=== PATIENT | female | born 1985 | race Two or more races ===

== ENCOUNTER 2017-02-26 23:42 | Emergency (ER) | payer MEDICAID ==
[~2017-02-26] VITALS: Ht 170.2 cm; Wt 90.9 kg
[~2017-02-26 23:42] MED LIST: ALPR-624 PO; ARIP2TAB37 PO; CLON-527 PO; LAMO25TA94 PO; LEVO25TA7 PO; OMEP40CA37 PO; ONDA4TAB6 PO; TIZA4TAB11 PO; TRAZ-146 PO; ZOLP10TA5 PO
[2017-02-27] MEDS ORDERED: ondansetron 4mg rapidly disintigrating tab PO ONE (00:10)
[2017-02-27] MEDS ORDERED: HYDROcodone/acetaminophen 5mg/325mg tablet PO ONE (00:10)
[2017-02-27] MEDS ORDERED: dexamethasone 4mg tablet PO ONE (00:10)
[2017-02-27] MEDS ORDERED: diazepam 5mg tablet PO ONE (00:10)
[2017-02-27] MEDS ORDERED: ONDA4TAB9 SL (00:11)
[2017-02-27] MEDS ORDERED: VAL5T PO (00:11)
[2017-02-27] MEDS ORDERED: METH500T PO (00:11)
[2017-02-27] MEDS ORDERED: HYDR-3965 PO (00:11)
[2017-02-27 00:42] VITALS: BP 136/92
== END 2017-02-27 00:44 | disposition home or self-care (01) ==
LOC: ER 23:43
DX: S16.1XXA Strain of muscle, fascia and tendon at neck level, initial encounter (principal); S39.012A Strain of muscle, fascia and tendon of lower back, initial encounter; S29.012A Strain of muscle and tendon of back wall of thorax, initial encounter; G89.29 Other chronic pain; V89.2XXA Person injured in unspecified motor-vehicle accident, traffic, initial encounter; Y93.89 Activity, other specified; Y92.89 Other specified places as the place of occurrence of the external cause; Y99.8 Other external cause status; Z90.49 Acquired absence of other specified parts of digestive tract; Z88.0 Allergy status to penicillin; Z79.899 Other long term (current) drug therapy
CPT/HCPCS: 99284; J8540; L0172; 99285

== ENCOUNTER 2017-03-31 03:56 | Emergency (ER) | payer MEDICARE, MEDICAID ==
[~2017-03-31] VITALS: Ht 170.2 cm; Wt 97.7 kg
[~2017-03-31 03:56] MED LIST changes: +HYDR-3965 PO; +METH500T PO
[2017-03-31] MEDS ORDERED: LORazepam 2 mg/ml vial IV ONE (04:00)
[2017-03-31] MEDS ORDERED: normal saline 1000ML IV soln IVB ONE (04:00)
[2017-03-31] MEDS ORDERED: ondansetron/PF 4mg/2ml inj IV ONE (04:00)
[2017-03-31] MEDS ORDERED: metoclopramide 5 mg/ml inj IV ONE (04:10)
[2017-03-31] MEDS ORDERED: diphenhydrAMINE 50 mg/ml inj IV ONE (04:10)
[2017-03-31] MEDS ORDERED: proCHLORperazine 10 MG/2 ml inj IV ONE (04:40)
[2017-03-31 04:43] LABS: BASOPHILS % (AUTO) 0.7 % (0-1); EOSINOPHILS # (AUTO) 0.2 X10'3 (0-0.9); EOSINOPHILS % (AUTO) 2.3 % (0-6); HEMATOCRIT 35.1 % (35.0-45.0); HEMOGLOBIN 11.9 g/dl (12.0-16.0); LYMPHOCYTES # (AUTO) 2.5 X10'3 (1.1-4.8); MEAN CORPUSCULAR HEMOGLOBIN 28.5 PG (27.0-31.0); MEAN CORPUSCULAR HGB CONC 34.1 % (33.0-36.5); MEAN CORPUSCULAR VOLUME 83.5 FL (78-98); MEAN PLATELET VOLUME 8.7 FL (7.4-10.4); MONOCYTES # (AUTO) 0.4 X10'3 (0-0.9); MONOCYTES % (AUTO) 6.5 % (2-12); NEUTROPHILS # (AUTO) 3.6 X10'3 (1.8-7.7); NEUTROPHILS % (AUTO) 53.5 % (42-75); PLATELET COUNT 238 X10'3 (140-440); RED CELL DISTRIBUTION WIDTH 12.9 % (11.5-14.5); WHITE BLOOD COUNT 6.8 X10'3 (4.5-11.0)
[2017-03-31 04:55] LABS: CLARITY,URINE CLEAR (Clear); COLOR,URINE YELLOW (Yellow); PROTEIN,URINE NEGATIVE (Neg)
[2017-03-31 04:56] LABS: GLUCOSE, URINE NEGATIVE (Neg); KETONES,URINE NEGATIVE (Neg); LEUKOCYTE ESTERASE ,URINE NEGATIVE (Neg); NITRITES, URINE NEGATIVE (Neg); OCCULT BLOOD,URINE NEGATIVE (Neg); UA COLLECTION TYPE CLN CATCH MIDSTREAM; UROBILINOGEN,URINE 0.2 E.U/dL (0.2-1.0)
[2017-03-31 05:00] LABS: ALANINE AMINOTRANSFERASE 26 U/L (12-78); ALBUMIN 3.4 G/DL (3.4-5.0); ALBUMIN/GLOBULIN RATIO 1.1 (1.1-1.5); ALKALINE PHOSPHATASE 80 IU/L (46-116); ANION GAP 7 (8-16); ASPARTATE AMINO TRANSFERASE 17 U/L (10-37); BILIRUBIN,TOTAL 0.3 MG/DL (0.1-1.0); BLOOD UREA NITROGEN 14 MG/DL (7-18); BUN/CREATININE RATIO 18.9 (6.6-38.0); CALCIUM 8.9 MG/DL (8.5-10.1); CHLORIDE 107 MMOL/L (99-107); CREATININE 0.74 MG/DL (0.40-0.90); GLUCOSE 100 MG/DL (70-104); LIPASE 137 U/L (73-393); POTASSIUM 3.9 MMOL/L (3.5-5.1); SODIUM 140 MMOL/L (135-145); TOTAL CARBON DIOXIDE 26.4 MMOL/L (24-32); TOTAL PROTEIN 6.6 G/DL (6.4-8.2); eGFR 90 ML/MIN
[2017-03-31] MEDS ORDERED: ONDA4TAB12 PO (05:33)
[2017-03-31 06:11] VITALS: BP 100/68
== END 2017-03-31 06:13 | disposition home or self-care (01) ==
LOC: ER 03:57
DX: R11.2 Nausea with vomiting, unspecified (principal); M54.2 Cervicalgia; R51 Headache; G89.29 Other chronic pain; F41.9 Anxiety disorder, unspecified; Z90.49 Acquired absence of other specified parts of digestive tract; Z88.0 Allergy status to penicillin; Z88.2 Allergy status to sulfonamides
CPT/HCPCS: 36415; 72040; 72125; 80053; 81003; 83690; 85025; 96361; 96374; 96375; 99285; J0780; J1200; J2060; J7030

== ENCOUNTER 2018-11-09 04:39 | Emergency (ER) | payer MEDICAID, MEDICARE ==
[~2018-11-09] VITALS: Ht 170.2 cm; Wt 72.7 kg
[~2018-11-09 04:39] MED LIST changes: -HYDR-3965 PO; +OMEP40CA13 PO; -OMEP40CA37 PO; +ONDA4TAB12 PO; -TRAZ-146 PO; +TRAZ-219 PO
[2018-11-09 04:42] VITALS: BP 102/55
[2018-11-09] MEDS ORDERED: LIDOcaine 1% w/EPI 1:200,000 injection 10mL vial IM ONE (04:55)
[2018-11-09] MEDS ORDERED: LIDOcaine 1% W/epiNEPHrine 1:100,000 20ml vial SQ ONE (05:00)
[2018-11-09] MEDS ORDERED: CLIN-90 PO (05:11)
[2018-12-01] MEDS ORDERED: CLIN-90 PO (01:06)
== END 2018-11-09 05:24 | disposition home or self-care (01) ==
LOC: ER 04:40
DX: T25.221A Burn of second degree of right foot, initial encounter (principal); L02.414 Cutaneous abscess of left upper limb; G89.29 Other chronic pain; F41.9 Anxiety disorder, unspecified; F32.9 Major depressive disorder, single episode, unspecified; F15.90 Other stimulant use, unspecified, uncomplicated; Z88.0 Allergy status to penicillin; Z90.49 Acquired absence of other specified parts of digestive tract; Z88.4 Allergy status to anesthetic agent; Z88.8 Allergy status to other drugs, medicaments and biological substances; Z79.2 Long term (current) use of antibiotics; Z79.899 Other long term (current) drug therapy; X08.8XXA Exposure to other specified smoke, fire and flames, initial encounter; Y93.89 Activity, other specified; Y92.89 Other specified places as the place of occurrence of the external cause; Y99.8 Other external cause status
CPT/HCPCS: 10060; 99283

== ENCOUNTER 2018-11-27 15:36 | Emergency (ER) | payer MEDICARE ==
[~2018-11-27] VITALS: Ht 170.2 cm; Wt 75.2 kg
[~2018-11-27 15:36] MED LIST changes: +CLIN-90 PO
[2018-11-27 15:49] VITALS: BP 136/80
[2018-11-27] MEDS ORDERED: CLON-529 PO (17:28)
[2018-11-27] MEDS ORDERED: HYDR-3686 PO (17:28)
--- NOTE | 2018-11-27 18:13 | NUR ---
signed up for pt as i came to fast track from main er .pt was not assessed by any nurseat that time.pt d/c pt d/c paper work ready but pt not in room .pt left fast track without informing the staff.mary drummond called and lft msg to come back for her paperwork.
--- NOTE | 2018-11-27 18:53 | NUR ---
second call to number on facesheet. left message to come back in to sisal picker prescription.
[2018-12-01] MEDS ORDERED: CLIN-90 PO (01:06)
== END 2018-11-27 19:00 | disposition home or self-care (01) ==
LOC: ER 15:36
DX: S90.451A Superficial foreign body, right great toe, initial encounter (principal); F32.9 Major depressive disorder, single episode, unspecified; F15.90 Other stimulant use, unspecified, uncomplicated; G89.29 Other chronic pain; F17.200 Nicotine dependence, unspecified, uncomplicated; F41.9 Anxiety disorder, unspecified; Z88.0 Allergy status to penicillin; Z88.4 Allergy status to anesthetic agent; Z88.2 Allergy status to sulfonamides; Z79.2 Long term (current) use of antibiotics; Z79.899 Other long term (current) drug therapy; Z90.49 Acquired absence of other specified parts of digestive tract; X58.XXXA Exposure to other specified factors, initial encounter; Y93.89 Activity, other specified; Y92.89 Other specified places as the place of occurrence of the external cause; Y99.8 Other external cause status
CPT/HCPCS: 10120; 99284

== ENCOUNTER 2018-11-30 23:00 | Emergency (ER) | payer MEDICARE ==
[~2018-11-30] VITALS: Ht 170.2 cm; Wt 75.0 kg
[~2018-11-30 23:00] MED LIST changes: -CLIN-90 PO; +CLIN-96 PO; +CLON-529 PO; +HYDR-3686 PO
[2018-12-01 00:23] VITALS: BP 132/69
[2018-12-01] MEDS ORDERED: CLON-529 PO (01:00)
[2018-12-01] MEDS ORDERED: HYDR-3686 PO (01:00)
[2018-12-01] MEDS ORDERED: CLIN-96 PO (01:06)
== END 2018-12-01 01:29 | disposition home or self-care (01) ==
LOC: EEVIPCON 23:01 → ER 23:01
DX: L02.414 Cutaneous abscess of left upper limb (principal); L02.413 Cutaneous abscess of right upper limb; F32.9 Major depressive disorder, single episode, unspecified; G89.29 Other chronic pain; F41.9 Anxiety disorder, unspecified; F15.90 Other stimulant use, unspecified, uncomplicated; F10.99 Alcohol use, unspecified with unspecified alcohol-induced disorder; Z90.49 Acquired absence of other specified parts of digestive tract; Z88.0 Allergy status to penicillin; Z88.2 Allergy status to sulfonamides; Z79.899 Other long term (current) drug therapy; Y90.9 Presence of alcohol in blood, level not specified
CPT/HCPCS: 99283; 99284

== ENCOUNTER 2018-12-09 00:20 | Emergency (ER) | payer MEDICARE ==
[~2018-12-09] VITALS: Ht 170.2 cm; Wt 75.0 kg
[~2018-12-09 00:20] MED LIST changes: +CLIN-90 PO; -CLIN-96 PO; -HYDR-3686 PO
[2018-12-09] MEDS ORDERED: LORazepam 1 MG tablet PO ONE (00:40)
--- NOTE | 2018-12-09 01:18 | NUR ---
ADMINISTRATIVE ASST TO CHANGE PT INTO GREEN SCRUBS AND GO THROUGH PT BELONGINGS FOR A 1798. PT DIFFICULT STICK ATTTEMPTED X2 WITHOUT POSITIVE RESULTS . PT STATES SHE "JUST PEED" WHEN ASKED PT TO GIVE URINE SAMPLE FOR MED CLEARANCE. PT REMOVING ALL HER JWERELY AND WHEN ASKED IF SHE HAS ANYTHING IN HER POCKETS SHE STATED " YES , I HAVE THIS , AND A SYRINGE INSULIN WAS HANDED TO THE TECH WITH A DARK SUBSTANCE THAT MEASURED TO STEPHANIE 20 BRANDON. SECURITY WAS CALLED AND THE SYRINGE WAS GIVEN TO SECURITY. PT STATES SHE HAS USED FOR ABOUT YEAR. MD BOYD
--- NOTE | 2018-12-09 01:30 | NUR ---
Pt's belongings documented and placed in ambulance bay lockers.
--- NOTE | 2018-12-09 01:41 | NUR ---
CHARGE NURSE, SUZETTE, AT [facility] FOR BLOOD DRAW.PT ASKED TO HAVE SOME FOOD AND WARM UP PRIOR TO NEXT ATTEMPT TO DRAW BLOOD, PT GIVEN SANDWITCH, CRACKERS, APPLE JUICE, AND A PITCHER OF WATER. PT ALSO GIVEN 2 WARM BLANKETS. URINE SPEICAMN SENT TO LAB
--- NOTE | 2018-12-09 01:52 | NUR ---
BAG SHOP WORKERMIRNA QUINTEROS, ATTEMPTING LAB DRAW, UNSUCCESSFUL AFTER 2 ATTEMPTS. LAB CALLED TO ATTEMPT DRAW.
[2018-12-09 02:11] LABS: CLARITY,URINE CLEAR (Clear); COLOR,URINE YELLOW (Yellow); GLUCOSE, URINE NEGATIVE (Neg); KETONES,URINE NEGATIVE (Neg); LEUKOCYTE ESTERASE ,URINE NEGATIVE (Neg); NITRITES, URINE NEGATIVE (Neg); OCCULT BLOOD,URINE NEGATIVE (Neg); PROTEIN,URINE NEGATIVE (Neg); UA COLLECTION TYPE CLN CATCH MIDSTREAM; UROBILINOGEN,URINE 0.2 E.U/dL (0.2-1.0)
[2018-12-09 02:12] LABS: URINE AMPHETAMINE SCREEN POSITIVE (Neg); URINE BARBITUATE SCREEN NEGATIVE (Neg); URINE BENZODIAZEPINES SCREEN NEGATIVE (Neg); URINE CANNABINOID SCREEN NEGATIVE (Neg); URINE COCAINE SCREEN NEGATIVE (Neg); URINE METHADONE SCREEN NEGATIVE (Neg); URINE OPIATE SCREEN NEGATIVE (Neg); URINE PHENCYCLIDINE SCREEN NEGATIVE (Neg)
--- NOTE | 2018-12-09 02:21 | NUR ---
SEO EXECUTIVE CALLED DOWN FOR LAB DRAW. ATTEMPTED LAB DRAW UNSUCCESSFUL . PT SUPER HYPERSNESITIVE. 2 RN'S AND 1 SEO EXECUTIVE ATTEMPTED DRAWING LABS WITHOUT SUCCESS. ENCOURAGED PT TO CONTINUE TO DRINK WATER TO HELP HYDRATION STATUS. AWARE OF DIFFICULT STICK AND THAT LABS STILL HAVE NOT BEEN DRAWN. PT CURRENTLY SLEEPING ON HER BACK IN GREEN SCRUBS HR 72 100 % ROOM AIR RR 18 BP 125/69
[2018-12-09 02:26] LABS: URINE HCG NEGATIVE (NEG)
--- NOTE | 2018-12-09 02:55 | NUR ---
CHARGE NURSE IRVING WAS ABLE TO DRAW BLOOD AFTER 2 MORE ADDITONAL STICKS TOTAL STICKS FOR BLOOD DRAW WAS 7
[2018-12-09 03:07] LABS: BASOPHILS % (AUTO) 0.6 % (0-1); EOSINOPHILS # (AUTO) 0.2 X10'3 (0-0.9); EOSINOPHILS % (AUTO) 2.8 % (0-6); LYMPHOCYTES # (AUTO) 2.6 X10'3 (1.1-4.8); LYMPHOCYTES % (AUTO) 37.3 % (21-51); MEAN CORPUSCULAR HGB CONC 34.1 g/dL (33.0-36.5); MONOCYTES # (AUTO) 0.7 X10'3 (0-0.9); MONOCYTES % (AUTO) 9.5 % (2-12); NEUTROPHILS # (AUTO) 3.5 X10'3 (1.8-7.7); NEUTROPHILS % (AUTO) 49.8 % (42-75); PLATELET COUNT 247 X10'3 (140-440); RED BLOOD COUNT 4.12 X10'6 (4.20-5.60)
[2018-12-09 03:16] LABS: ALANINE AMINOTRANSFERASE 42 U/L (12-78); ALBUMIN 3.4 G/DL (3.4-5.0); ALKALINE PHOSPHATASE 72 IU/L (46-116); ANION GAP 7 (8-16); ASPARTATE AMINO TRANSFERASE 42 U/L (10-37); BILIRUBIN,TOTAL 0.3 MG/DL (0.1-1.0); BLOOD UREA NITROGEN 9 MG/DL (7-18); BUN/CREATININE RATIO 14.5 (6.6-38.0); CALCIUM 8.3 MG/DL (8.5-10.1); CHLORIDE 108 MMOL/L (99-107); CREATININE 0.62 MG/DL (0.40-0.90); GLUCOSE 101 MG/DL (70-104); POTASSIUM 3.7 MMOL/L (3.5-5.1); SODIUM 143 MMOL/L (135-145); TOTAL CARBON DIOXIDE 28.5 MMOL/L (24-32); TOTAL PROTEIN 6.7 G/DL (6.4-8.2); eGFR > 90 ML/MIN
[2018-12-09 03:26] LABS: ACETAMINOPHEN < 2.0 UG/ML (10-30); ETHANOL < 0.010 GM/DL (0.0-0.010)
--- NOTE | 2018-12-09 03:32 | NUR ---
Packet faxed to [facility]. Unable to confirm receipt of packet as out of business hours.
--- NOTE | 2018-12-09 04:15 | NUR ---
Pt moved from main ER. Patient goes directly to sleep. Patient not wanting to do anything but rest at this time. Recent S/I, plan: Jump from bridge. No H/I. Non compliant on medications since March or April of this year. Patient came to ED with hope to get a medical clearance to go to the [facility].
[2018-12-09 05:38] VITALS: BP 114/56
--- NOTE | 2018-12-09 07:00 | NUR ---
pt is sleeping
--- NOTE | 2018-12-09 08:00 | NUR ---
pt is still sleeping. no concerns at this time
--- NOTE | 2018-12-09 09:00 | NUR ---
pt is still resting in bed. pt did not want to have breakfast
[2018-12-10] MEDS ORDERED: NO HOME MEDS (20:47)
== END 2018-12-09 15:57 | disposition home or self-care (01) ==
LOC: ER 00:20
DX: R45.851 Suicidal ideations (principal); F41.9 Anxiety disorder, unspecified; G89.29 Other chronic pain; F15.90 Other stimulant use, unspecified, uncomplicated; F10.99 Alcohol use, unspecified with unspecified alcohol-induced disorder; Z90.49 Acquired absence of other specified parts of digestive tract; Z88.0 Allergy status to penicillin; Z88.8 Allergy status to other drugs, medicaments and biological substances; Z88.2 Allergy status to sulfonamides; Z79.899 Other long term (current) drug therapy; Y90.9 Presence of alcohol in blood, level not specified
CPT/HCPCS: 36415; 80053; 80305; 80320; 80329; 81003; 81025; 84443; 85025; 99284

== ENCOUNTER 2018-12-10 20:02 | Emergency (ER) | payer MEDICARE ==
[~2018-12-10] VITALS: Ht 170.2 cm; Wt 75.0 kg
[~2018-12-10 20:02] MED LIST changes: -CLIN-90 PO; +CLIN-96 PO
[2018-12-10] MEDS ORDERED: NO HOME MEDS (20:47)
[2018-12-10] MEDS ORDERED: LORazepam 1 MG tablet PO ONE (20:50)
[2018-12-10 20:56] LABS: URINE HCG NEGATIVE (NEG)
[2018-12-10 20:59] LABS: CLARITY,URINE SLIGHTLY CLOUDY (Clear); COLOR,URINE YELLOW (Yellow); GLUCOSE, URINE NEGATIVE (Neg); KETONES,URINE NEGATIVE (Neg); LEUKOCYTE ESTERASE ,URINE TRACE (Neg); NITRITES, URINE NEGATIVE (Neg); OCCULT BLOOD,URINE NEGATIVE (Neg); PROTEIN,URINE NEGATIVE (Neg); UROBILINOGEN,URINE 0.2 E.U/dL (0.2-1.0)
--- NOTE | 2018-12-10 21:02 | NUR ---
Moved from h3 to er bed 9. Dr. Wallace ordering ativan tablet as pt reprots increasing anxiety. pt remains cooperative and polite.
[2018-12-10 21:03] LABS: UA COLLECTION TYPE CLN CATCH MIDSTREAM
[2018-12-10 21:07] LABS: BACTERIA,URINE 1+ /HPF (Neg); MUCUS STRANDS FEW /LPF (Neg); RBC,URINE NONE SEEN /HPF (0-2); SQUAMOUS EPITHELIAL CELL,UR MANY /LPF (FEW); WBC,URINE 0-4 /HPF (0-4)
[2018-12-10 21:09] LABS: URINE AMPHETAMINE SCREEN POSITIVE (Neg); URINE BARBITUATE SCREEN NEGATIVE (Neg); URINE BENZODIAZEPINES SCREEN NEGATIVE (Neg); URINE CANNABINOID SCREEN POSITIVE (Neg); URINE COCAINE SCREEN NEGATIVE (Neg); URINE METHADONE SCREEN NEGATIVE (Neg); URINE OPIATE SCREEN NEGATIVE (Neg); URINE PHENCYCLIDINE SCREEN NEGATIVE (Neg)
[2018-12-10 21:24] LABS: BASOPHILS % (AUTO) 0.5 % (0-1); EOSINOPHILS # (AUTO) 0.1 X10'3 (0-0.9); EOSINOPHILS % (AUTO) 0.7 % (0-6); HEMATOCRIT 37.2 % (35.0-45.0); HEMOGLOBIN 12.3 g/dl (12.0-16.0); LYMPHOCYTES # (AUTO) 2.5 X10'3 (1.1-4.8); LYMPHOCYTES % (AUTO) 32.5 % (21-51); MEAN CORPUSCULAR HEMOGLOBIN 28.6 PG (27.0-31.0); MEAN CORPUSCULAR HGB CONC 33.1 g/dL (33.0-36.5); MEAN CORPUSCULAR VOLUME 86.4 FL (78-98); MONOCYTES # (AUTO) 0.6 X10'3 (0-0.9); MONOCYTES % (AUTO) 7.3 % (2-12); NEUTROPHILS # (AUTO) 4.5 X10'3 (1.8-7.7); PLATELET COUNT 263 X10'3 (140-440); RED BLOOD COUNT 4.31 X10'6 (4.20-5.60); RED CELL DISTRIBUTION WIDTH 13.2 % (11.5-14.5); WHITE BLOOD COUNT 7.6 X10'3 (4.5-11.0)
[2018-12-10 21:38] LABS: ALANINE AMINOTRANSFERASE 39 U/L (12-78); ALBUMIN 3.8 G/DL (3.4-5.0); ALBUMIN/GLOBULIN RATIO 1.1 (1.1-1.5); ALKALINE PHOSPHATASE 79 IU/L (46-116); ANION GAP 8 (8-16); ASPARTATE AMINO TRANSFERASE 31 U/L (10-37); BILIRUBIN,TOTAL 0.5 MG/DL (0.1-1.0); BLOOD UREA NITROGEN 8 MG/DL (7-18); BUN/CREATININE RATIO 11.9 (6.6-38.0); CHLORIDE 105 MMOL/L (99-107); CREATININE 0.67 MG/DL (0.40-0.90); ETHANOL < 0.010 GM/DL (0.0-0.010); GLUCOSE 83 MG/DL (70-104); POTASSIUM 3.7 MMOL/L (3.5-5.1); SODIUM 140 MMOL/L (135-145); TOTAL CARBON DIOXIDE 26.8 MMOL/L (24-32); TOTAL PROTEIN 7.2 G/DL (6.4-8.2); eGFR > 90 ML/MIN
--- NOTE | 2018-12-10 22:56 | NUR ---
The patient is asleep on her bed. She is currently on a mental health hold for being a danger to herself. Per the 5150 she walked to the police station and hold and stated she was suicidal. She was medically cleared. She is homeless in the [facility]. She is a heavy user of methamphetamine. She has been here to the ER frequently.
--- NOTE | 2018-12-10 23:07 | NUR ---
IV discontinued. The patient awake briefly when her IV was removed but fell right back asleep. She is very somulent after receiving ativan 2mg
--- NOTE | 2018-12-11 01:36 | NUR ---
The patient appears to be sleeping
--- NOTE | 2018-12-11 03:33 | NUR ---
The patient appears to be sleeping.
--- NOTE | 2018-12-11 05:13 | NUR ---
The patient appears to be sleeping
--- NOTE | 2018-12-11 07:50 | NUR ---
Patient sleeping and difficulty waking up. Patient does not want to eat breakfast at this time. Continue to monitor.
--- NOTE | 2018-12-11 09:51 | NUR ---
Patient sitting up and eating breakfast. No distress observed. Continue to monitor.
--- NOTE | 2018-12-11 11:36 | NUR ---
Leo with [facility] speaking with patient. Patient crying. Continue to monitor.
--- NOTE | 2018-12-11 11:41 | NUR ---
Patient is being placed on a 5150 by [facility]. Continue to monitor.
--- NOTE | 2018-12-11 13:05 | NUR ---
Patient's mother called and gave RN okay to speak with mother. RN explained procedure of 5150. Mother stated she would call her daughter tomorrow. Continue to monitor.
--- NOTE | 2018-12-11 13:50 | NUR ---
Patient awoke and is eating lunch. No distress observed. Continue to monitor.
[2018-12-11] MEDS ORDERED: hydrOXYzine 25 MG tablet PO PRN (17:10)
[2018-12-11 20:47] VITALS: BP 115/62
== END 2018-12-11 20:49 | disposition home or self-care (01) ==
LOC: ER 20:02
DX: R45.851 Suicidal ideations (principal); G89.29 Other chronic pain; F41.9 Anxiety disorder, unspecified; F10.99 Alcohol use, unspecified with unspecified alcohol-induced disorder; F15.90 Other stimulant use, unspecified, uncomplicated; Z90.49 Acquired absence of other specified parts of digestive tract; Z88.0 Allergy status to penicillin; Z88.2 Allergy status to sulfonamides; Z88.8 Allergy status to other drugs, medicaments and biological substances; Y90.0 Blood alcohol level of less than 20 mg/100 ml
CPT/HCPCS: 36415; 80053; 80305; 80320; 81001; 81025; 85025; 99285; Z7610

== ENCOUNTER 2018-12-11 13:56 | Inpatient (IN) | payer MEDICARE ==
[~2018-12-11] VITALS: Ht 170.2 cm; Wt 71.9 kg
[~2018-12-11 13:56] MED LIST changes: -ALPR-624 PO; -ARIP2TAB37 PO; -CLIN-96 PO; -CLON-527 PO; -CLON-529 PO; -LAMO25TA94 PO; -LEVO25TA7 PO; -METH500T PO; +NO HOME MEDS; -OMEP40CA13 PO; -ONDA4TAB12 PO; -ONDA4TAB6 PO; -TIZA4TAB11 PO; -TRAZ-219 PO; -ZOLP10TA5 PO
[2018-12-11 20:50] VITALS: BP 118/82
[2018-12-11] MEDS ORDERED: loperamide 2mg capsule PO PRN (22:15)
[2018-12-11] MEDS ORDERED: LORazepam 1 MG tablet PO PRN (22:15)
[2018-12-11] MEDS ORDERED: acetaminophen 325mg tablet PO PRN ×2 (22:15)
[2018-12-11] MEDS ORDERED: magnesium hydroxide 30ml (MOM) UD suspension PO PRN (22:15)
[2018-12-11] MEDS ORDERED: mag hydrox/Alum hydrox/simeth 30ml oral suspension PO PRN (22:15)
--- NOTE | 2018-12-11 23:22 | NUR ---
Admission Note: Pt. admitted to [facility] at 2049 accompanied by Parag Amador. Safety check and inventory completed by Parag Amador. She is placed on a 5150 for DTS. Pt. presents with a blunted affect, and is cooperative, however depressed, guarded, fatigued, and slightly irritable. Skin check completed by Elen Chairez RN and Sindhu Beckman RN. Pt. presents with dry/cracked bilateral feet, an old blister on her rt. heel, and a bruise and scabs present on rt. hip. She reports she has been walking a long ways outdoors. Pictures obtained and placed in chart. Pt. reports a history of chronic depression and anxiety, however denies currently taking any medications. She also voices S/I with a plan to jump [place] the [place]. Pt. reports a previous suicide attempt to overdose on medications a couple of months ago. She uses IV methamphetamine daily and last used on 12/10/18. Pt. is homeless, and per ER chart was recently kicked out of her mother's home r/t drug use. She has a hard time completing admission assessment r/t fatigue, and frequently states, "I don't want to talk about that at this time." Pt. in bed and appears to be resting comfortably. Call light in reach.
[2018-12-12 07:46] LABS: CHOL/HDL RATIO 2.2 (0.00-4.99); CHOLESTEROL 158 MG/DL (0-200); HDL CHOLESTEROL 71 MG/DL (35-60); LDL CHOLESTEROL 81 MG/DL (50-100); TRIGLYCERIDES 44 MG/DL (20-135)
[2018-12-12 08:06] VITALS: BP 107/62
--- NOTE | 2018-12-12 18:00 | NUR ---
NURSING PROGRESS NOTE Legal hold: 5150 Client on voluntary/involuntary status for DTS Report received from ALDAIR Clemente with use of SBAR Why are they here: Pt. reports a history of chronic depression and anxiety, however denies currently taking any medications. She also voices S/I with a plan to jump off the [address]. Pt. reports a previous suicide attempt to overdose on medications a couple of months ago. She uses IV methamphetamine daily and last used on 12/10/18. Pt. is homeless, and per ER chart was recently kicked out of her mother's home r/t drug use. Assessment What has happened this shift: The patient was asleep at change of shift. Depressed, irritable mood and flat affect. Did not want to talk with nurse today stated, "I just want to sleep, I'm so tired." When asked about suicidal thoughts would only say, "I'm just sad." Refused to get up for meals. Ate lunch meal tray in room, but did get up to eat dinner with others. S/I, H/I: passive SI A/VH: Denies Sleep: most of day ADL's: Independent Group attendance: No Were meds taken: No meds ordered Any med S/E: N/A Mental Status Exam Appearance: disheveled Eye contact: minimal Behavior: lethargic Speech: minimal, soft Mood: depressed Affect: flat Thought process: unable to assess, patient not engaging Thought Content: sadness Cognition: lethargic but alert and oriented Insight: poor Judgment: poor Interventions PRN's used: None Therapeutic interventions: 1:1 assessment, establish rapport, active listening, provide therapeutic environment, encouragement to attend groups, maintained q15m safety checks. Restraints/seclusion/emergency medication: None Justification of Continued Inpatient Treatment: Requires interruption of current crisis, medication adjustments, and a safe and supportive environment to prevent readmission.
[2018-12-12] MEDS: hydrOXYzine 25 MG tablet PO PRN (19:16)
[2018-12-12 20:47] VITALS: BP 118/59
--- NOTE | 2018-12-12 22:17 | NUR ---
NURSING PROGRESS NOTE Legal hold: 5150 Client on involuntary status for DTS Report received from ALDAIR Ramachandran with use of SBAR Why are they here: Pt. reports a history of chronic depression and anxiety, however denies currently taking any medications. She also voices S/I with a plan to jump off the [address]. Pt. reports a previous suicide attempt to overdose on medications a couple of months ago. She uses IV methamphetamine daily and last used on 12/10/18. Pt. is homeless, and per ER chart was recently kicked out of her mother's home r/t drug use. Assessment What has happened this shift: During change of shift, Pt. was in bed sleeping. She was very reluctant to care and did not want to allow this flex o writer operator to perform physical assessment. Pt also refused to have vital signs taken initially but later on allowed this flex o writer operator to perform physical assessment and vital signs. She was in bed naked since getting out of the shower. When asked if she wanted to get dressed, she refused. Pt was very depressed and remained in bed all night. Became agitated and started crying stating that she was feeling very sad because she misses her boyfriend. Pt also stated that she feels sad because she wishes her family members would call to check up on her but nobody has called since her admission. Pt was given a dose of Atarax 50mg for her agitation. Will continue to monitor. 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 Restraints/seclusion/emergency medication: None Justification of Continued Inpatient Treatment: Requires interruption of current crisis, medication adjustments, and a safe and supportive environment to prevent readmission.
[2018-12-13 10:34] VITALS: BP 125/76
--- NOTE | 2018-12-13 10:37 | NUR ---
Met with Ct to complete Psychosocial Assessment. She had been observed to be sleeping all day yesterday. Ct was in bed and reported she had gotten up for breakfast. She did not want to talk and stated, "I just want to sleep". She did answer some questions and participated minimally in the assessment. She kept her eyes closed the entire time. She stated she would like to go to rehab and that she is now homeless. She would not participated in the substance abuse assessment. MARIUSZ Mccabe Addendum: 12/13/18 at 1039 by Stephanie Urbina Amended: Links added.
--- NOTE | 2018-12-13 14:35 | NUR ---
NURSING PROGRESS NOTE Legal hold: 5150 Client on voluntary/involuntary status for DTS Report received from ALDAIR Jj with use of SBAR Why are they here: Pt. reports a history of chronic depression and anxiety, however denies currently taking any medications. She also voices S/I with a plan to jump off the [address]. Pt. reports a previous suicide attempt to overdose on medications a couple of months ago. She uses IV methamphetamine daily and last used on 12/10/18. Pt. is homeless, and per ER chart was recently kicked out of her mother's home r/t drug use. Assessment What has happened this shift: The patient was asleep at change of shift. She was sleeping with no clothing on. She was told to put on her clothes which she did. Depressed, irritable mood and flat affect. Did not want to talk with nurse today stated, "I just want to sleep, I'm so tired." Refused to talk or engage with nurse regarding suicidal thoughts. In the morning was informed of group therapy sessions and she did agree to attend one group today. She was notified when Art Therapy group started. She came to group after much encouragement but was unable to stay in the group more than 5 mins. She left the group upset about perceived missing belongings (actually on unit), and returned to her room and bed. S/I, H/I: probable passive SI A/VH: Denies Sleep: most of day ADL's: Independent Group attendance: No Were meds taken: No meds ordered Any med S/E: N/A Mental Status Exam Appearance: disheveled Eye contact: minimal Behavior: short, irritable Speech: minimal, soft Mood: depressed Affect: labile Thought process: unable to assess, patient not engaging Thought Content: sadness Cognition: alert and oriented Insight: poor Judgment: poor Interventions PRN's used: None Therapeutic interventions: 1:1 assessment, establish rapport, active listening, provide therapeutic environment, encouragement to attend groups, maintained q15m safety checks. Restraints/seclusion/emergency medication: None Justification of Continued Inpatient Treatment: Requires interruption of current crisis, medication adjustments, and a safe and supportive environment to prevent readmission.
[2018-12-13 20:00] VITALS: BP 120/69
--- NOTE | 2018-12-14 00:32 | NUR ---
NURSING PROGRESS NOTE Legal hold: 5150 ex. 12/14/18 @9624 Client on voluntary/involuntary status for DTS Report received from CARLOS A Ramachandran with use of SBAR Why are they here: Pt. reports a history of chronic depression and anxiety, however denies currently taking any medications. She also voices S/I with a plan to jump off the [email or web address] [place]. Pt. reports a previous suicide attempt to overdose on medications a couple of months ago. She uses IV methamphetamine daily and last used on 12/10/18. Pt. is homeless, and per ER chart was recently kicked out of her mother's home r/t drug use. Assessment What has happened this shift: Pt was sleeping during shift change. Established rapport. When asked how she was doing she stated "I just feel a lot of sadness". During 1:1 assessment, Pt was very cooperative and stated that she did not have any more thoughts about harming herself or others. She sates that she does feel better than the day before but still very sad and hopeless. Her sadness came from not knowing what she was going to do after leaving her. When asked if she had attended any group meetings during the day, she sated that she tried to attend the art group meeting but got there late so she returned to her room. Pt remained isolative in her room sleeping for most of the evening. Will continue to monitor. 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 Restraints/seclusion/emergency medication: None Justification of Continued Inpatient Treatment: Requires interruption of current crisis, medication adjustments, and a safe and supportive environment to prevent readmission.
[2018-12-14 08:00] VITALS: BP 131/76
[2018-12-14] MEDS ORDERED: ibuprofen tablet 400 MG TABLET PO PRN (09:00)
[2018-12-14] MEDS: clonazePAM 1mg tablet PO SCH ×2 (09:08→20:04)
[2018-12-14] MEDS: buPROPion 75mg tablet PO SCH (09:09)
--- NOTE | 2018-12-14 13:34 | NUR ---
NURSING PROGRESS NOTE Legal hold: 5150 Client on voluntary/involuntary status for DTS Report received from ALDAIR Jj with use of SBAR Why are they here: Pt. reports a history of chronic depression and anxiety, however denies currently taking any medications. She also voices S/I with a plan to jump off the [address]. Pt. reports a previous suicide attempt to overdose on medications a couple of months ago. She uses IV methamphetamine daily and last used on 12/10/18. Pt. is homeless, and per ER chart was recently kicked out of her mother's home r/t drug use. Assessment What has happened this shift: The patient was asleep at change of shift. She got up for breakfast and is eating well. Shortly after spoke with Dr. Infante. Patient was awake and much more alert today and was realizing her circumstances. She wants to leave because, "my family is ignoring me and I need to talk with them", also her boyfriend is in the [facility]. She wrote him a letter. Very agitated, anxious and tearful. Klonopin and Wellbutrin started today. She was able to calm herself and was able to go out on patio with others. Seemed to start to accept the fact she was put on a hold due to being suicidal. Depressed mood and tearful affect. S/I, H/I: Denies A/VH: Denies Sleep: Napped ADL's: Independent Group attendance: No Were meds taken: Yes Any med S/E: N/A Mental Status Exam Appearance: wnl Eye contact: moderate Behavior: sometimes agitated Speech: loud at times Mood: depressed Affect: labile Thought process: linear Thought Content: wanting to leave Cognition: alert and oriented Insight: poor Judgment: poor Interventions PRN's used: Motrin Therapeutic interventions: 1:1 assessment, establish rapport, active listening, provide therapeutic environment, encouragement to attend groups, maintained q15m safety checks. Restraints/seclusion/emergency medication: None Justification of Continued Inpatient Treatment: Requires interruption of current crisis, medication adjustments, and a safe and supportive environment to prevent readmission.
[2018-12-14] MEDS: hydrOXYzine 25 MG tablet PO PRN (18:46)
[2018-12-14 20:00] VITALS: BP 124/62
[2018-12-14] MEDS: traZODone 50mg tablet PO PRN (20:08)
--- NOTE | 2018-12-15 01:58 | NUR ---
NURSING PROGRESS NOTE: Ronel Willis Legal hold: 5250 Exp 12/28 @ 2054 Client on involuntary status for DTS Report received from ALDAIR Ramachandran with use of SBAR Why are they here: Pt. reports a history of chronic depression and anxiety, however denies currently taking any medications. She also voices S/I with a plan to jump off the [address]. Pt. reports a previous suicide attempt to overdose on medications a couple of months ago. She uses IV methamphetamine daily and last used on 12/10/18. Pt. is homeless, and per ER chart was recently kicked out of her mother's home r/t drug use. Assessment What has happened this shift: Pt was in hallway on her way back to the room at shift change.Pt was teary stated she spoke with her mother today and she began saying mean and hurtful things to her. Pt feels like her family has abdondon her. Pt's boyfriends mom came to visit pt this shift. Pt states it was a good visit and made her feel hopeful " I just need to call [facility] and get serious about my recovery." I just need to do it." Pt was compliant with medications and 1:1 assessment. Pt retired to bed right after med administration. Pt has been sleeping comfortable up to this writing, will continue to monitor. S/I, H/I: Pt denies. 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 Were meds taken: Medication compliant Any med S/E: None reported or observed Mental Status Exam Appearance: Clean, dressed appropriately in green scrubs. Eye contact: Fair Behavior: Cooperative, tearful Speech: Clear, normal rate and rhythm Mood: Depressed Affect: Flat Thought process: Linear Thought Content: Wanting to leave Cognition: A&O Insight: Poor Judgment: Poor Interventions PRN's used: Atarax Therapeutic interventions: 1:1 therapeutic assessment, medication administration/education/monitoring, active listening, provide therapeutic environment, encouragement to attend groups, maintained Q15 min safety checks. Restraints/seclusion/emergency medication: None Justification of Continued Inpatient Treatment: Requires interruption of current crisis, medication adjustments, and a safe and supportive environment to prevent readmission.
[2018-12-15] MEDS: clonazePAM 1mg tablet PO SCH ×2 (08:00→19:06)
[2018-12-15] MEDS: buPROPion 75mg tablet PO SCH (08:10)
[2018-12-15 08:22] VITALS: BP 107/56
--- NOTE | 2018-12-15 10:31 | NUR ---
Initial: Pt PO 75-100% regular meals meeting needs. LBM 12/13. No nutrition concerns at this time. Will continue to monitor. Rec: 1. continue regular diet 2. bowel care if constipation 3. wt per rx Addendum: 12/15/18 at [address] Amended: Links added.
--- NOTE | 2018-12-15 13:57 | NUR ---
NURSING PROGRESS NOTE: Legal hold: 5250 Exp 12/28 @ 2054 Client on involuntary status for DTS Report received from ALDAIR Ott with use of SBAR Why are they here: Pt. reports a history of chronic depression and anxiety, however denies currently taking any medications. She also voices S/I with a plan to jump off the [employer] [place]. Pt. reports a previous suicide attempt to overdose on medications a couple of months ago. She uses IV methamphetamine daily and last used on 12/10/18. Pt. is homeless, and per ER chart was recently kicked out of her mother's home r/t drug use. Assessment What has happened this shift: Pt was sleepy and fatigued this morning, needed encouragement to get up for breakfast. Pt denied depression, anxiety, SI/HI/AH/VH. Pt stated, "I'm just tired...that sleeping pill I took last night was a little stronger than I thought." Pt refused her routine Klonopin 1 mg this morning stating that she didn't need it as she wasn't anxious and it would probably have put her right back to sleep. Pt stated that she really liked the oatmeal she had at breakfast and wished she could have had more. S/I, H/I: Pt denies. A/VH: Pt denies Sleep: Pt slept 8 hours per noc shift report. ADL's: Independent Group attendance: No though did participate in patio activity. Were meds taken: Yes took her Wellbutrin though refused Klonopin stating she didn't need it. Any med S/E: Pt c/o feeling overly tired she believes from medication she took last night. Per EMAR, pt took Atarax 50 mg in the evening, as well as Klonopin 1 mg and Trazodone 50 mg @ HS. Mental Status Exam Appearance: Clean, dressed in green hospital scrubs Eye contact: Fair Behavior: Withdrawn, restricted, mostly isolative to self, cooperative Speech: Clear, normal rate and rhythm, minimal Mood: Fatigued Affect: Fatigued Thought process: Linear Thought Content: Doesn't wish to take Klonopin if she doesn't need it, feels tired, likes the oatmeal. Cognition: A/O X 4 Insight: Poor Judgment: Poor Interventions PRN's used: N/A Therapeutic interventions: 1:1 assessment, establishment of rapport, encouragement to express thoughts and feelings, encouragement to participate in unit activities and attend groups, medication administration/education/monitoring, active listening, maintained Q15 min safety checks. Restraints/seclusion/emergency medication: None Justification of Continued Inpatient Treatment: Requires interruption of current crisis, medication adjustments, and a safe and supportive environment to prevent readmission. Addendum: 12/15/18 at 1423 by Gina White RN (Lee) PCT reported to this RN that pt had pushed on fire doors near the community room. She was redirected away from the doors. Pt stated that she just wanted out then went on to say that she was upset about her mom; that she wanted to talk to her then she didn't want to talk to her. Pt requested a piece of paper and a pencil, pt returned to her room. Will monitor for further exit seeking attempts.
--- NOTE | 2018-12-15 17:02 | NUR ---
Pt approached this RN to complain of pain while trying to have a bowel movement, stated that it was very uncomfortable, that she had never had this before, that she felt like there was a huge bump there and when she pushed it felt like she was going to tear. Dr Watkins was present on the unit, she assessed rectal area, no obvious signs of hemorrhoids, digital exam performed with some hard stool felt but no indication of internal hemorrhoids. MD ordered Colace 100 mg PO BID routine and encouraged salads, fresh fruits, and increased water.
[2018-12-15] MEDS: traZODone 50mg tablet PO PRN (19:06)
[2018-12-15] MEDS: docusate sod 100mg capsule PO SCH (19:06)
[2018-12-15 20:00] VITALS: BP 115/62
--- NOTE | 2018-12-16 03:08 | NUR ---
Nursing Progress Note: Legal hold: 5250 Client on involuntary status for DTS Report received from nurse with use of SBAR: ALDAIR Ramachandran Why are they here: Pt. reports a history of chronic depression and anxiety, however denies currently taking any medications. She also voices S/I with a plan to jump off the [address]. Pt. reports a previous suicide attempt to overdose on medications a couple of months ago. She uses IV methamphetamine daily and last used on 12/10/18. Pt. is homeless, and per ER chart was recently kicked out of her mother's home r/t drug use. Assessment What has happened this shift: Pt. laying in bed at the beginning of the shift, and continues to isolate here throughout the shift. She continues to c/o constipation, PRN MOM administered along with scheduled Colace, will continue to monitor. Bowl sounds are present in all four quadrants and pt. reports she is passing gas. Pt. also requests all of her HS medications to be given at approximately 1930 because she would like to go to bed early in preparation for her court hearing tomorrow. Pt. then becomes tearful, states, "I need to get home, my mom and my friends need me!" She denies any further S/I, and reports she plans to be done using drugs. Pt. states, "Drugs are going to take my life and everything I have away from me." She reports she would like to go to a drug rehabilitation facility called [facility]. S/I, H/I: Denies A/VH: Denies Sleep: Appears fatigued and in bed throughout the shift ADL's: Requires some prompting Group attendance: Pt. did not attend HS snack Were meds taken: Yes Any med S/E: None Mental Status Exam Appearance: Hair somewhat disheveled, appropriately dressed Eye contact: Fair Behavior: Cooperative, fatigued, and isolative Speech: WNL Mood: Withdrawn Affect: Labile Thought process: Minimizing any MH s/s Thought Content: Preoccupation with discharge Cognition: A&O X4 Insight: Poor Judgment: Poor to fair Interventions PRN's used: MOM and Trazodone Therapeutic interventions: Ensured contract for safety, maintained a safe and therapeutic environment, provided active listening, monitored behaviors and need for intervention, provided positive encouragement, and maintained Q 15 min safety checks. Restraints/seclusion/emergency medication: N/A Justification of Continued Inpatient Treatment: Per Dr. Infante, pt. remains impulsive in her decision making and would be at high risk for discharge.
[2018-12-16] MEDS: docusate sod 100mg capsule PO SCH (07:55)
[2018-12-16] MEDS: buPROPion 75mg tablet PO SCH (07:55)
[2018-12-16] MEDS: clonazePAM 1mg tablet PO SCH (08:00)
[2018-12-16 09:00] VITALS: BP 116/64
[2018-12-16] MEDS ORDERED: TRAZ-251 PO (10:37)
[2018-12-16] MEDS ORDERED: HYDR-3686 PO (10:37)
[2018-12-16] MEDS ORDERED: BUPR75TA12 PO (10:37)
--- NOTE | 2018-12-16 12:53 | NUR ---
DISCHARGE NOTE: Pt discharged at 1250, ambulated off the unit accompanied by PCT to [facility] where she was [place] by [employer] [place]. Pt has a check to [place] and intends to stay at a hotel for awhile until she can get into a rehab center in [place]. Paper Rx's provided, all belongings returned. Pt expressed understanding of discharge instructions, medications, and follow up care. Pt has an appointment in a couple of days with psychiatrist Dr Infante.
== END 2018-12-16 12:50 | disposition home or self-care (01) | DRG 885 ==
LOC: ADULT MH 13:56
PROVIDERS: ADMIT Psychiatry & Neurology Psychiatry; ATTEND Psychiatry & Neurology Psychiatry
DX: F32.2 Major depressive disorder, single episode, severe without psychotic features (principal); R45.851 Suicidal ideations; F15.90 Other stimulant use, unspecified, uncomplicated; F41.9 Anxiety disorder, unspecified; F17.210 Nicotine dependence, cigarettes, uncomplicated; Z59.0 Homelessness; Z81.8 Family history of other mental and behavioral disorders; Z90.49 Acquired absence of other specified parts of digestive tract
CPT/HCPCS: 36415; 80053; 80061; 80305; 80320; 80329; 81001; 81003; 81025; 83036; 84443; 85025; 87081; 99285; Z7610

== ENCOUNTER 2019-01-01 04:04 | Emergency (ER) | payer MEDICARE ==
[~2019-01-01] VITALS: Ht 170.2 cm; Wt 72.0 kg
[~2019-01-01 04:04] MED LIST changes: +BUPR75TA12 PO; +HYDR-3686 PO; -NO HOME MEDS; +TRAZ-251 PO
[2019-01-01] MEDS ORDERED: CEPH-572 PO (04:43)
[2019-01-01 04:46] VITALS: BP 148/92
== END 2019-01-01 04:49 | disposition home or self-care (01) ==
LOC: ER 04:04
DX: S11.83XA Puncture wound without foreign body of other specified part of neck, initial encounter (principal); S10.83XA Contusion of other specified part of neck, initial encounter; F15.10 Other stimulant abuse, uncomplicated; G89.29 Other chronic pain; F10.99 Alcohol use, unspecified with unspecified alcohol-induced disorder; Z59.0 Homelessness; Z90.49 Acquired absence of other specified parts of digestive tract; Z88.0 Allergy status to penicillin; Z88.8 Allergy status to other drugs, medicaments and biological substances; Z79.899 Other long term (current) drug therapy; X58.XXXA Exposure to other specified factors, initial encounter; Y93.89 Activity, other specified; Y92.89 Other specified places as the place of occurrence of the external cause; Y99.8 Other external cause status; Y90.9 Presence of alcohol in blood, level not specified
CPT/HCPCS: 99283

== ENCOUNTER 2019-01-05 03:50 | Emergency (ER) | payer MEDICARE ==
[~2019-01-05] VITALS: Ht 170.2 cm; Wt 72.7 kg
[~2019-01-05 03:50] MED LIST changes: +CEPH-572 PO
[2019-01-05 03:58] VITALS: BP 122/73
--- NOTE | 2019-01-05 04:15 | NUR ---
two pairs of socks given patient.
== END 2019-01-05 04:19 | disposition home or self-care (01) ==
LOC: ER 03:51
DX: S90.822A Blister (nonthermal), left foot, initial encounter (principal); S90.821A Blister (nonthermal), right foot, initial encounter; G89.29 Other chronic pain; F15.90 Other stimulant use, unspecified, uncomplicated; Z88.0 Allergy status to penicillin; Z88.8 Allergy status to other drugs, medicaments and biological substances; Z79.2 Long term (current) use of antibiotics; Z79.899 Other long term (current) drug therapy; Z59.0 Homelessness; Z90.49 Acquired absence of other specified parts of digestive tract; X58.XXXA Exposure to other specified factors, initial encounter; Y93.01 Activity, walking, marching and hiking; Y92.89 Other specified places as the place of occurrence of the external cause; Y99.8 Other external cause status
CPT/HCPCS: 99281

== ENCOUNTER 2019-01-26 23:00 | Emergency (ER) | payer MEDICARE ==
[~2019-01-26] VITALS: Ht 170.2 cm; Wt 72.0 kg
[~2019-01-26 23:00] MED LIST changes: -CEPH-572 PO
[2019-01-26 23:03] VITALS: BP 162/72
[2019-01-26 23:49] LABS: URINE HCG NEGATIVE (NEG)
[2019-01-26 23:52] LABS: CLARITY,URINE CLEAR (Clear); COLOR,URINE YELLOW (Yellow); GLUCOSE, URINE NEGATIVE (Neg); KETONES,URINE NEGATIVE (Neg); LEUKOCYTE ESTERASE ,URINE TRACE (Neg); NITRITES, URINE NEGATIVE (Neg); OCCULT BLOOD,URINE NEGATIVE (Neg); PROTEIN,URINE NEGATIVE (Neg); UROBILINOGEN,URINE 0.2 E.U/dL (0.2-1.0)
[2019-01-26] MEDS ORDERED: CIPR-230 PO (23:53)
[2019-01-26] MEDS ORDERED: CefTRIAXone 1000mg IM Kit (w/lidocaine diluent) IM ONE (23:55)
[2019-01-26 23:57] LABS: BACTERIA,URINE FEW /HPF (Neg); RBC,URINE 0-2 /HPF (0-2); SQUAMOUS EPITHELIAL CELL,UR FEW /LPF (FEW); UA COLLECTION TYPE CLN CATCH MIDSTREAM
== END 2019-01-27 00:29 | disposition home or self-care (01) ==
LOC: ER 23:01
DX: N12 Tubulo-interstitial nephritis, not specified as acute or chronic (principal); F15.10 Other stimulant abuse, uncomplicated; Z59.0 Homelessness; Z88.0 Allergy status to penicillin; Z90.49 Acquired absence of other specified parts of digestive tract; Z88.4 Allergy status to anesthetic agent; Z87.440 Personal history of urinary (tract) infections; Z79.899 Other long term (current) drug therapy; Z88.9 Allergy status to unspecified drugs, medicaments and biological substances
CPT/HCPCS: 81001; 81025; 87088; 96372; 99283; J0696

== ENCOUNTER 2019-01-30 09:11 | Emergency (ER) | payer MEDICARE ==
[~2019-01-30] VITALS: Ht 170.2 cm; Wt 71.4 kg
[~2019-01-30 09:11] MED LIST changes: +CIPR-230 PO
[2019-01-30 09:12] VITALS: BP 139/90
--- NOTE | 2019-01-30 13:01 | NUR ---
PT STATED SHE WAS READY TO LEAVE. STATED SHE WAS DEFINATELY NOT SUICIDAL OR HOMICIDAL, JUST ANXIOUS ABOUT HER CIRCUMSTANCES WITH HER SIGNIFICANT OTHER AND THAT SHE HAS NO FAMILY HERE TO GO TO. STATES SHE WAS JUST TIRED OF WALKING AROUND IN THE RAIN AND WANTED A SWEATER AND SOME FOOD AND WAS TOLD SHE COME HERE FOR THOSE THINGS. PT ALSO CONCERNED THAT HER THINGS WOULD BE STOLEN WHERE SHE LEFT THEM IF SHE DIDNT GET BACK TO THEM SOON. MD ADVISED. GIVEN 2 SWEATERS AND FOOD. ADVISED SHE COULD COME BACK ANYTIME AND AFTER SHE GETS HER THINGS IF SHE NEEDS. GIVEN INFO FOR [facility], [employer], AND [employer] ALSO.
== END 2019-01-30 13:09 | disposition left against medical advice (07) ==
LOC: ER 09:11
DX: Z00.8 Encounter for other general examination (principal); F41.9 Anxiety disorder, unspecified; Z53.21 Procedure and treatment not carried out due to patient leaving prior to being seen by health care provider

== ENCOUNTER 2019-02-23 03:58 | Emergency (ER) | payer MEDICARE ==
[~2019-02-23] VITALS: Ht 170.2 cm; Wt 63.6 kg
[2019-02-23 04:09] VITALS: BP 125/64
--- NOTE | 2019-02-23 04:32 | NUR ---
PT SAYS SHE IS TOO COLD FOR A GOOD BLOOD DRAW, SO 4 WARMED BLANKETS PLACED ONTO THE PATIENT.
--- NOTE | 2019-02-23 04:34 | NUR ---
pt mother name barry. phone #:[phone]. pt requested we call mother and give update. called and no answer-left a message to call back.
[2019-02-23] MEDS ORDERED: NO HOME MEDS (04:35)
--- NOTE | 2019-02-23 04:36 | NUR ---
pt has bracelet on left arm and nose ring. unable to remove due to pt hand swelling from cold. will attempt to remove at later time.
--- NOTE | 2019-02-23 04:51 | NUR ---
PT MOTHER JOB CALLED BACK. NOTIFIED OF PT BEING HERE AND SITUATION PER PT REQUEST.
[2019-02-23 05:02] LABS: BASOPHILS % (AUTO) 0.6 % (0-1); EOSINOPHILS # (AUTO) 0.1 X10'3 (0-0.9); EOSINOPHILS % (AUTO) 2.3 % (0-6); HEMATOCRIT 34.9 % (35.0-45.0); LYMPHOCYTES # (AUTO) 1.6 X10'3 (1.1-4.8); LYMPHOCYTES % (AUTO) 26.9 % (21-51); MEAN CORPUSCULAR HEMOGLOBIN 28.4 PG (27.0-31.0); MEAN CORPUSCULAR HGB CONC 34.5 g/dL (33.0-36.5); MEAN CORPUSCULAR VOLUME 82.3 FL (78-98); MEAN PLATELET VOLUME 8.2 FL (7.4-10.4); MONOCYTES # (AUTO) 0.5 X10'3 (0-0.9); MONOCYTES % (AUTO) 8.8 % (2-12); NEUTROPHILS # (AUTO) 3.7 X10'3 (1.8-7.7); NEUTROPHILS % (AUTO) 61.4 % (42-75); PLATELET COUNT 193 X10'3 (140-440); RED BLOOD COUNT 4.24 X10'6 (4.20-5.60); RED CELL DISTRIBUTION WIDTH 12.6 % (11.5-14.5)
[2019-02-23 05:18] LABS: URINE HCG NEGATIVE (NEG)
--- NOTE | 2019-02-23 05:42 | NUR ---
PT escorted to overflow with staff. Pt resting in bed RR 16, no complaints at this time.
[2019-02-23 05:44] LABS: URINE AMPHETAMINE SCREEN POSITIVE (Neg); URINE BARBITUATE SCREEN NEGATIVE (Neg); URINE BENZODIAZEPINES SCREEN NEGATIVE (Neg); URINE CANNABINOID SCREEN NEGATIVE (Neg); URINE COCAINE SCREEN NEGATIVE (Neg); URINE METHADONE SCREEN NEGATIVE (Neg); URINE OPIATE SCREEN NEGATIVE (Neg); URINE PHENCYCLIDINE SCREEN NEGATIVE (Neg)
[2019-02-23 05:48] LABS: ALANINE AMINOTRANSFERASE 107 U/L (12-78); ALBUMIN 3.5 G/DL (3.4-5.0); ALBUMIN/GLOBULIN RATIO 1.1 (1.1-1.5); ALKALINE PHOSPHATASE 76 IU/L (46-116); ANION GAP 7 (8-16); ASPARTATE AMINO TRANSFERASE 80 U/L (10-37); BILIRUBIN,TOTAL 0.4 MG/DL (0.1-1.0); BLOOD UREA NITROGEN 19 MG/DL (7-18); BUN/CREATININE RATIO 33.9 (6.6-38.0); CALCIUM 8.4 MG/DL (8.5-10.1); CHLORIDE 105 MMOL/L (99-107); CREATININE 0.56 MG/DL (0.40-0.90); GLUCOSE 113 MG/DL (70-104); POTASSIUM 3.2 MMOL/L (3.5-5.1); SODIUM 138 MMOL/L (135-145); TOTAL CARBON DIOXIDE 25.8 MMOL/L (24-32); TOTAL PROTEIN 6.8 G/DL (6.4-8.2); eGFR > 90 ML/MIN
[2019-02-23 05:49] LABS: ETHANOL < 0.010 GM/DL (0.0-0.010)
--- NOTE | 2019-02-23 06:08 | NUR ---
PACKET FAXED TO [facility].
[2019-02-23] MEDS ORDERED: potassium Cl 20 mEq SR tablet PO STA (06:36)
--- NOTE | 2019-02-23 07:00 | NUR ---
Pt is resting in bed peacefully at this time. She had potassium of 3.2 on labs, 40 MeQ given to patient orally per order. Pt took medications without incident. She denies needs at this time.
--- NOTE | 2019-02-23 08:50 | NUR ---
Pt is laying in bed propped up on right elbow eating breakfast. She is in mild emotional distress. She is grimmacing and asking to call her "boyfriend's mother to tell her that he is suicidal and choosing drugs". Encouraged patient to eat breakfast first and use the phone after her meal. She is amenable to this.
--- NOTE | 2019-02-23 10:43 | NUR ---
Patient is resting in bed in the supine position. No distress observed.
--- NOTE | 2019-02-23 10:48 | NUR ---
Breaking primary RN. pt is supine in bed, eyes closed, regular breathing present, no anxiety observed
--- NOTE | 2019-02-23 11:07 | NUR ---
Zoey [facility] is at bedside attempting to assess patient, however, pt is still disoriented and assessment can not be completed.
--- NOTE | 2019-02-23 11:17 | NUR ---
Radha Ramachandran RN [facility] is at bedside talking to patient.
--- NOTE | 2019-02-23 11:29 | NUR ---
[facility] jil: Spoke with pt about possible admission. Pt was difficult to arouse. Pt made multiple statements "I just want to sleep. I cant keep my eyes open." Asked pt about her plans. Pt states "I dont want to hurt myself. I dont have a plan. Im hopeless." Asked pt what wo could do for her on [facility]. Pt states she would like to detox. Pts plan for discharge is "Detox". Pt would like to go to [facility]. Asked pt if she felt like she needed her meds adjusted. She states "I dont take any medications. I dont need any." Spoke with Zoey [facility] and she will evaluate pt.
--- NOTE | 2019-02-23 11:50 | NUR ---
ARABELLA Greer [facility] is at bedside assessing patient. Patient is laying on right side and is tearful. No distress observed. Will continue to monitor.
--- NOTE | 2019-02-23 12:28 | NUR ---
Breaking Primary RN, pt is laying on her right side, regular breathing present, eyes closed, appears to be sleeping,
--- NOTE | 2019-02-23 13:50 | NUR ---
Pt is resting in bed peacefully at this time in the supine postition. She requested some snacks prior to lunch and received yogurt and apple sauce. Lunch is at bedside but patient is not eating at this time.
--- NOTE | 2019-02-23 15:15 | NUR ---
Pt discharged ambulating self, no distress observed. Security accompanied Pt. Weather appropriate clothing was given, pt declined bus passes. She reports that she wants to go to [place] to detox. She denies SI. All personal items were in patient posession.
== END 2019-02-23 15:15 | disposition home or self-care (01) ==
LOC: ER 04:01
DX: R45.851 Suicidal ideations (principal); F15.10 Other stimulant abuse, uncomplicated; G89.29 Other chronic pain; F17.200 Nicotine dependence, unspecified, uncomplicated; Z90.49 Acquired absence of other specified parts of digestive tract; Z59.0 Homelessness; Z88.0 Allergy status to penicillin; Z88.6 Allergy status to analgesic agent; Z88.8 Allergy status to other drugs, medicaments and biological substances
CPT/HCPCS: 36415; 80053; 80305; 80320; 81025; 85025; 99284

== ENCOUNTER 2019-03-01 15:53 | Emergency (ER) | payer MEDICARE ==
[~2019-03-01] VITALS: Ht 170.2 cm; Wt 71.1 kg
[~2019-03-01 15:53] MED LIST changes: -BUPR75TA12 PO; -CIPR-230 PO; -HYDR-3686 PO; +NO HOME MEDS; -TRAZ-251 PO
[2019-03-01 16:03] VITALS: BP 123/58
== END 2019-03-01 16:46 | disposition home or self-care (01) ==
LOC: ER 15:54
DX: F15.10 Other stimulant abuse, uncomplicated (principal); G89.29 Other chronic pain; F10.99 Alcohol use, unspecified with unspecified alcohol-induced disorder; Z90.49 Acquired absence of other specified parts of digestive tract; Z59.0 Homelessness; Z88.0 Allergy status to penicillin; Z88.2 Allergy status to sulfonamides; Z88.8 Allergy status to other drugs, medicaments and biological substances; Y90.9 Presence of alcohol in blood, level not specified
CPT/HCPCS: 99281

== ENCOUNTER 2019-03-31 00:37 | Emergency (ER) | payer MEDICARE ==
[~2019-03-31] VITALS: Ht 170.2 cm; Wt 72.7 kg
[2019-03-31 00:42] VITALS: BP 129/92
[2019-03-31] MEDS ORDERED: CLIN150C8 PO (00:53)
[2019-03-31] MEDS ORDERED: ketorolac trometh inj. 60 MG/2 ML VIAL IM ONE (00:55)
[2019-03-31] MEDS ORDERED: clindamycin 150mg capsule PO ONE (00:55)
[2019-03-31] MEDS ORDERED: TETanus/Pertussis (Acell)/Diphther VAC/PF (Tdap-Adult) 0.5ml syringe IMVAC ONE (00:55)
== END 2019-03-31 01:15 | disposition home or self-care (01) ==
LOC: ER 00:38
DX: L03.113 Cellulitis of right upper limb (principal); G89.29 Other chronic pain; F15.90 Other stimulant use, unspecified, uncomplicated; Z90.49 Acquired absence of other specified parts of digestive tract; Z59.0 Homelessness; Z87.440 Personal history of urinary (tract) infections; Z88.0 Allergy status to penicillin; Z88.6 Allergy status to analgesic agent; Z88.8 Allergy status to other drugs, medicaments and biological substances
CPT/HCPCS: 90471; 90715; 96372; 99284; J1885

== ENCOUNTER 2019-07-28 01:49 | Emergency (ER) | payer MEDICARE ==
[~2019-07-28] VITALS: Ht 165.1 cm; Wt 61.4 kg
[~2019-07-28 01:49] MED LIST changes: +CLIN150C8 PO
[2019-07-28] MEDS ORDERED: PERM60CR4 TOP (02:11)
== END 2019-07-28 02:49 | disposition left against medical advice (07) ==
LOC: ER 01:50
DX: B85.2 Pediculosis, unspecified (principal); Z76.0 Encounter for issue of repeat prescription; Z00.00 Encounter for general adult medical examination without abnormal findings

== ENCOUNTER 2019-10-07 23:10 | Emergency (ER) | payer MEDICARE ==
[~2019-10-07] VITALS: Ht 170.2 cm; Wt 65.9 kg
[~2019-10-07 23:10] MED LIST changes: +PERM60CR4 TOP
[2019-10-07 23:16] VITALS: BP 139/81
[2019-10-07] MEDS ORDERED: LORA-269 PO (23:30)
== END 2019-10-07 23:43 | disposition home or self-care (01) ==
LOC: ER 23:10
DX: F15.10 Other stimulant abuse, uncomplicated (principal); F31.9 Bipolar disorder, unspecified; G89.29 Other chronic pain; Z87.440 Personal history of urinary (tract) infections; Z90.49 Acquired absence of other specified parts of digestive tract; Z72.89 Other problems related to lifestyle; Z59.0 Homelessness; Z88.0 Allergy status to penicillin; Z88.8 Allergy status to other drugs, medicaments and biological substances; Z79.2 Long term (current) use of antibiotics; Z79.899 Other long term (current) drug therapy
CPT/HCPCS: 99283

== ENCOUNTER 2019-10-09 19:30 | Emergency (ER) | payer MEDICARE ==
[~2019-10-09] VITALS: Ht 170.2 cm; Wt 65.9 kg
[~2019-10-09 19:30] MED LIST changes: +LORA-269 PO
[2019-10-09 19:31] VITALS: BP 135/69
== END 2019-10-09 19:54 | disposition left against medical advice (07) ==
LOC: ER 19:30
DX: F41.9 Anxiety disorder, unspecified (principal); Z53.21 Procedure and treatment not carried out due to patient leaving prior to being seen by health care provider

== ENCOUNTER 2020-07-25 05:06 | Emergency (ER) | payer MEDICARE ==
[~2020-07-25] VITALS: Ht 170.2 cm; Wt 68.2 kg
[2020-07-25] MEDS ORDERED: DOXYCYCLINE 100MG CAPSULE PO STA (08:00)
[2020-07-25] MEDS ORDERED: DOXY100C43 PO (08:00)
[2020-07-25 08:14] VITALS: BP 116/57
== END 2020-07-25 08:23 | disposition home or self-care (01) ==
LOC: ER 05:06
DX: L03.116 Cellulitis of left lower limb (principal); F15.90 Other stimulant use, unspecified, uncomplicated; G89.29 Other chronic pain; Z59.0 Homelessness; Z88.0 Allergy status to penicillin; Z88.6 Allergy status to analgesic agent; Z88.2 Allergy status to sulfonamides; Z88.8 Allergy status to other drugs, medicaments and biological substances; Z79.899 Other long term (current) drug therapy; Z87.440 Personal history of urinary (tract) infections; Z72.89 Other problems related to lifestyle; Z79.2 Long term (current) use of antibiotics
CPT/HCPCS: 96372; 99283

== ENCOUNTER 2021-02-22 06:02 | Emergency (ER) | payer MEDICARE | END 2021-02-22 07:00 | disposition left against medical advice (07) | LOC: ER 06:02 | DX: R06.02 Shortness of breath (principal); Z53.21 Procedure and treatment not carried out due to patient leaving prior to being seen by health care provider ==

== ENCOUNTER 2023-01-31 00:47 | Emergency (ER) | payer MEDICARE ==
[~2023-01-31] VITALS: Ht 170.2 cm; Wt 82.7 kg
[~2023-01-31 00:47] MED LIST changes: +CLIN-214 PO; -CLIN150C8 PO
[2023-01-31 00:51] VITALS: BP 151/88; PULSE 103; RESP 17; TEMP 98.6; O2SAT 99
== END 2023-01-31 04:44 | disposition left against medical advice (07) ==
LOC: ER 00:49
DX: R51.9 Headache, unspecified (principal); Z20.822 Contact with and (suspected) exposure to COVID-19; Z53.21 Procedure and treatment not carried out due to patient leaving prior to being seen by health care provider
CPT/HCPCS: 36415; 87811; 99281

== ENCOUNTER 2023-09-05 14:25 | Emergency (ER) | payer MEDICARE ==
[~2023-09-05] VITALS: Ht 170.2 cm; Wt 84.1 kg
[2023-09-05 14:34] VITALS: BP 127/89; PULSE 87; RESP 18; O2SAT 98
[2023-09-05] MEDS ORDERED: dexamethasone sod phosphate 10mg/ml inj IM STA (15:59)
[2023-09-05] MEDS ORDERED: ketorolac trometh. 30mg/ml inj. IM ONE (16:00)
[2023-09-05] MEDS ORDERED: cyclobenzaprine 10mg tablet PO ONE (16:00)
[2023-09-05] MEDS ORDERED: LIDO700A32 TOP (16:11)
[2023-09-05] MEDS ORDERED: CYCL-1 PO (16:11)
[2023-09-05 16:48] VITALS: TEMP 97.8
== END 2023-09-05 16:51 | disposition home or self-care (01) ==
LOC: ER 14:25
DX: S80.01XA Contusion of right knee, initial encounter (principal); F15.90 Other stimulant use, unspecified, uncomplicated; Z88.0 Allergy status to penicillin; Z88.8 Allergy status to other drugs, medicaments and biological substances; Z88.5 Allergy status to narcotic agent; Z79.2 Long term (current) use of antibiotics; Z79.899 Other long term (current) drug therapy; Z90.49 Acquired absence of other specified parts of digestive tract; V89.2XXA Person injured in unspecified motor-vehicle accident, traffic, initial encounter; Y93.89 Activity, other specified; Y92.89 Other specified places as the place of occurrence of the external cause; Y99.8 Other external cause status
CPT/HCPCS: 73564; 99283

== ENCOUNTER 2024-02-19 13:17 | Emergency (ER) | payer MEDICAID, MEDICARE ==
[~2024-02-19] VITALS: Ht 170.2 cm; Wt 83.5 kg
[~2024-02-19 13:17] MED LIST changes: +CYCL-1 PO; +LIDO700A32 TOP
[2024-02-19 13:27] VITALS: TEMP 98.1
[2024-02-19 13:54] LABS: BASOPHILS % (AUTO) 0.3 % (0-1); EOSINOPHILS # (AUTO) 0.2 X10'3 (0-0.9); EOSINOPHILS % (AUTO) 1.8 % (0-6); HEMATOCRIT 43.4 % (35.0-45.0); HEMOGLOBIN 14.4 g/dl (12.0-16.0); LYMPHOCYTES # (AUTO) 1.3 X10'3 (1.1-4.8); LYMPHOCYTES % (AUTO) 13.1 % (21-51); MEAN CORPUSCULAR HEMOGLOBIN 28.7 PG (27.0-31.0); MEAN CORPUSCULAR HGB CONC 33.2 g/dL (33.0-36.5); MEAN CORPUSCULAR VOLUME 86.6 FL (78-98); MEAN PLATELET VOLUME 7.9 FL (7.4-10.4); MONOCYTES # (AUTO) 0.8 X10'3 (0-0.9); MONOCYTES % (AUTO) 8.2 % (2-12); NEUTROPHILS # (AUTO) 7.8 X10'3 (1.8-7.7); NEUTROPHILS % (AUTO) 76.6 % (42-75); PLATELET COUNT 235 X10'3 (140-440); RED BLOOD COUNT 5.01 X10'6 (4.20-5.60); RED CELL DISTRIBUTION WIDTH 13.1 % (11.5-14.5); WHITE BLOOD COUNT 10.2 X10'3 (4.5-11.0)
[2024-02-19 14:05] LABS: URINE HCG NEGATIVE (NEG)
[2024-02-19 14:06] LABS: BILIRUBIN,URINE NEGATIVE (Neg); CLARITY,URINE CLEAR (Clear); COLOR,URINE YELLOW (Yellow); GLUCOSE, URINE NEGATIVE (Neg); KETONES,URINE NEGATIVE (Neg); LEUKOCYTE ESTERASE ,URINE MODERATE (Neg); NITRITES, URINE POSITIVE (Neg); OCCULT BLOOD,URINE NEGATIVE (Neg); PROTEIN,URINE NEGATIVE (Neg); UROBILINOGEN,URINE 0.2 E.U/dL (0.2-1.0)
[2024-02-19 14:28] LABS: UA COLLECTION TYPE CLN CATCH MIDSTREAM
[2024-02-19 14:33] LABS: ALANINE AMINOTRANSFERASE 70 U/L (12-78); ALBUMIN 3.3 G/DL (3.4-5.0); ALBUMIN/GLOBULIN RATIO 0.8 (1.1-1.5); ALKALINE PHOSPHATASE 79 IU/L (46-116); ANION GAP 7 (8-16); ASPARTATE AMINO TRANSFERASE 38 U/L (10-37); BILIRUBIN,TOTAL 0.3 MG/DL (0.1-1.0); BLOOD UREA NITROGEN 10 MG/DL (7-18); BUN/CREATININE RATIO 16.1 (10.0-20.0); CALCIUM 8.9 MG/DL (8.5-10.1); CHLORIDE 104 MMOL/L (99-107); CREATININE 0.62 MG/DL (0.40-0.90); GLUCOSE 90 MG/DL (70-104); LIPASE 25 U/L (16-77); POTASSIUM 4.2 MMOL/L (3.5-5.1); SODIUM 138 MMOL/L (135-145); TOTAL CARBON DIOXIDE 26.9 MMOL/L (24-32); TOTAL PROTEIN 7.5 G/DL (6.4-8.2); eCRCL 117 ML/MIN; eGFR > 90 ML/MIN
[2024-02-19 14:46] LABS: SQUAMOUS EPITHELIAL CELL,UR MANY /LPF (FEW)
[2024-02-19 14:47] LABS: BACTERIA,URINE 2+ /HPF (Neg); RBC,URINE NONE SEEN /HPF (0-2); WBC,URINE 30-50 /HPF (0-4)
[2024-02-19 14:48] LABS: TRICHOMONAS,URINE MOD /HPF (NEGATIVE)
[2024-02-19] MEDS ORDERED: ketorolac trometh 15mg/ml vial 15 MG/ML ML IV ONE (15:00)
[2024-02-19] MEDS ORDERED: ondansetron/PF 4mg/2ml inj IV ONE (15:00)
[2024-02-19] MEDS ORDERED: CefTRIAXone 2gm/D5W 50ml BAG 50 ML IV ONE (15:00)
[2024-02-19] MEDS ORDERED: normal saline 1000ml 1,000 ML IV ONE (15:00)
[2024-02-19] MEDS: ondansetron 4mg rapidly disintigrating tab PO ONE (16:39)
[2024-02-19] MEDS: ketorolac trometh 15mg/ml vial 15 MG/ML ML IM ONE (16:39)
[2024-02-19] MEDS: CefTRIAXone 1000mg IM Kit (w/lidocaine diluent) IM ONE (16:42)
[2024-02-19] MEDS ORDERED: ONDA-245 PO (16:58)
[2024-02-19] MEDS ORDERED: CEPH-585 PO (16:58)
[2024-02-19] MEDS ORDERED: PHEN-716 PO (16:58)
[2024-02-19 17:16] VITALS: BP 130/85; PULSE 82; RESP 18; O2SAT 100
== END 2024-02-19 17:19 | disposition home or self-care (01) ==
LOC: ER 13:18
DX: N39.0 Urinary tract infection, site not specified (principal); F15.90 Other stimulant use, unspecified, uncomplicated; Z88.0 Allergy status to penicillin; Z88.1 Allergy status to other antibiotic agents; Z88.2 Allergy status to sulfonamides; Z88.8 Allergy status to other drugs, medicaments and biological substances; Z90.49 Acquired absence of other specified parts of digestive tract
CPT/HCPCS: 36415; 74176; 80053; 81001; 81025; 83690; 85025; 96372; 99285; J0696; J1885; J7030